=== PATIENT | male | born 1960 | race Caucasian/White ===

== ENCOUNTER 2024-12-25 10:04 | Emergency (ER) | payer OTHER, SELFPAY ==
[2024-12-25 10:28] VITALS: BP 113/70; PULSE 70; RESP 18; TEMP 36.6; O2SAT 96; BMI 43.4
--- NOTE | 2024-12-25 11:05 | ED.UPPEXIN ---
HPI - Extremity Injury (Upper) General Chief Complaint: Extremity Injury, Upper Stated Complaint: Lt arm skin tear Time Seen by Provider: 12/25/24 11:05 Source: patient Mode of arrival: Ambulatory History of Present Illness HPI narrative: Mr. Hilario is a pleasant 64 year old male with a past medical history of CAD, CHF, valve repair, AICD, umbilical hernia who presents to the emergency department for a left forearm skin tear that occurred prior to arrival. Patient states that he was working on his boat when his feet got caught/he tripped forward and scraped his left forearm on something in the boat. He denies head strike, LOC or any injuries except for left forearm skin tear. He denies headache, neck pain, back pain, chest pain, abdominal pain, right arm pain, lower extremity pain. He has no pain with range of motion. He now has multiple skin tears on the dorsal aspect of the left proximal forearm. He is on Pradaxa. His Tdap was about 15 years ago. He denies any medication allergies. No other concerns. He is here with his . Related Data Allergies Allergy/AdvReac Type Severity Reaction Status Date / Time No Known Drug Allergies Allergy Verified 12/25/24 10:29 Review of Systems Review of Systems ROS Unobtainable: All systems reviewed & are unremarkable except as noted in HPI and below Patient History Social History Smoking Status: Former smoker Smoking Status: Former smoker Exam Narrative Exam Narrative: GENERAL: 64 year old patient appears stated age. Well-developed patient, in no acute distress. HEAD: Atraumatic. Normocephalic. EYES: No scleral icterus. No injection or drainage. NECK: Trachea midline. Cervical ROM intact. CARDIOVASCULAR: Regular rate and rhythm. AICD left chest wall. RESPIRATORY: ?Nonlabored respirations. ?Speaking in clear, full sentences. ?Clear to auscultation. Breath sounds equal bilaterally. No wheezes, rales, or rhonchi. ? EXTREMITIES: On the dorsal left proxmal forearm there are 4 superficial skin tears extending from the proximal most forearm to the mid forearm. No deep laceration. Patient has 2+ radial pulses bilaterally, full range of motion of the hands, and no pain with tenderness or flexion-extension of the left elbow. NEURO: AOx3. ?Clear speech. ?Moves all 4 extremities appropriately. SKIN: L forearm skin tears described above. Initial Vital Signs Initial Vital Signs: Vital Signs Temperature 97.9 F 12/25/24 10:28 Pulse Rate 70 12/25/24 10:28 Respiratory Rate 18 12/25/24 10:28 Blood Pressure 113/70 12/25/24 10:28 Pulse Oximetry 96 12/25/24 10:28 Oxygen Delivery Method Room Air 12/25/24 10:28 Course Orders Ordered: Discontinued Medications Acetaminophen (Acetaminophen 325 Mg Tablet) 975 mg PO NOW ONE Stop: 12/25/24 11:20 Last Admin: 12/25/24 11:35 Dose: 975 mg Documented By: GIRISH Bacitracin (Bacitracin Oint 0.9 Gm Pckt) 1 applic TOP NOW ONE Stop: 12/25/24 11:20 Last Admin: 12/25/24 11:35 Dose: 1 applic Documented By: GIRISH Diphtheria/Tetanus/Acell Pertussis (Tet,Diph,Pertuss(Acell),Vac/Pf 0.5 Ml Syringe) 0.5 ml IM .ONCE ONE Stop: 12/25/24 11:20 Last Admin: 12/25/24 11:35 Dose: 0.5 ml Documented By: GIRISH Vital Signs Vital signs: Vital Signs - 8 hr 12/25/24 10:28 Temperature 97.9 F Pulse Rate 70 Respiratory Rate 18 Blood Pressure 113/70 Pulse Oximetry 96 Oxygen Delivery Method Room Air MDM - Extremity Injury (Upper) MDM Narrative Medical decision making narrative: 64 year old male with a past medical history of CAD, CHF, valve repair, AICD, umbilical hernia who presents to the emergency department for a left forearm skin tear that occurred prior to arrival. No head strike, no LOC, no neck pain back pain chest pain abdominal pain or pain with range of motion of extremities. Differential diagnosis includes but is not limited to skin tear, laceration, contusion, etc. On exam patient is in no acute distress, nontoxic-appearing, all vital signs within normal limits. He has superficial skin tears on the dorsal aspect of the left forearm. We will update Tdap, cleansed and irrigated wounds, and then repair and debride as needed. We will use bacitracin, Xeroform, nonadherent dressing. Patient tolerated wound cleansing and repair well. Area was irrigated with normal saline and Hibiclens. Skin tears were approximated and some skin was debrided as well. Bacitracin, Xeroform, Telfa, Kerlix, Coban dressing applied. Patient tolerated the procedure very well. Discussed proper wound care, ER return precautions. Patient his verbalized understanding of all information agreeable with the plan. He is ambulatory and stable for discharge home. Discharge Plan Departure Patient Disposition: Home Clinical Impression: Skin tear of left upper extremity Fall Qualifiers: Encounter type: initial encounter Qualified Code(s): W19.XXXA - Unspecified fall, initial encounter Instructions: DI for Avulsion Laceration (Not Requiring Sutures) Activity Restrictions/Additional Instructions: Dear Mr. Hilario, Today you had multiple skin tears to her left forearm. Please keep the dressing on your wound clean, dry, and intact for the next 24 hours. After this time, you may remove the dressing and gently, using water to avoid pulling off any skin, then clean the wound with soap (dial antibacterial soap, dove sensitive skin soap, etc.) and water, then pat dry. Cover the entire wound with antibiotic ointment such as bacitracin or triple antibiotic ointment. Keep the wound clean and covered. Avoid soaking the wound in any water such as a bath, pool, or the ocean. If you develop any signs of wound infection such as increased redness, pus drainage, streaking redness, or fevers, please return to the ER immediately for evaluation. We updated your tetanus shot today. Please return to the ER if you develop any signs or symptoms concerning for wound infection, severe headache, vomiting or other concerns. Please rest, increase hydration, use Tylenol for pain. Please follow up with your primary care doctor within the next 2-3 days for ER follow-up. (If you do not have a PCP you can call [phone]. ?to schedule an appointment with an [facility] Primary Care Provider) IF YOU DEVELOP ANY NEW OR WORSENING SYMPTOMS, RETURN TO THE ER! Please read the attached instructions, they highlight more specific treatments and interventions for you at home. Thank you for letting me participate in your care, Kena Rutherford PA-C Stand Alone Forms: Patient Portal/API
[2024-12-25] MEDS: TET,DIPH,PERTUSS(ACELL),VAC/PF 0.5 ML SYRINGE IM (11:35)
[2024-12-25] MEDS: ACETAMINOPHEN 325 MG TABLET 975 MG PO (11:35)
[2024-12-25] MEDS: BACITRACIN OINT 0.9 GM PCKT 1 APPLIC TOP (11:35)
== END 2024-12-25 12:06 | disposition home or self-care (01) ==
PROVIDERS: Emergency Provider Physician Assistant
DX: S51.812A Laceration without foreign body of left forearm, initial encounter (principal); W01.10XA Fall on same level from slipping, tripping and stumbling with subsequent striking against unspecified object, initial encounter; Z23 Encounter for immunization; Z87.891 Personal history of nicotine dependence
CPT/HCPCS: 90471; 99283; 90715